=== PATIENT | female | born 1935 | race Caucasian/White ===

== ENCOUNTER 2022-05-07 11:57 | Outpatient (CLI) | payer MEDICARE ==
[2022-05-07 13:25] LABS: Estimated GFR-MDRD - POC Greater than 90
[2022-05-07] MEDS ORDERED: Iopamidol 370 76% 100 ML VIAL ONE (15:24)
== END 2022-05-07 11:58 | disposition home or self-care (01) ==
LOC: CSHCT 11:57
PROVIDERS: ATTEND Internal Medicine Cardiovascular Disease
DX: I71.2 Thoracic aortic aneurysm, without rupture (principal); I71.4 Abdominal aortic aneurysm, without rupture; Z95.828 Presence of other vascular implants and grafts
CPT/HCPCS: 71275; 82565; Q9967